=== PATIENT | male | born 1945 | race Caucasian/White ===

== ENCOUNTER 2019-04-09 12:27 | Outpatient (CLI) | payer MEDICARE, BC, SELFPAY ==
--- NOTE | 2019-04-09 12:42 | ECHO_ITS ---
Patient Info Name: Tom David Age: 73 years : 1945 Gender: Male Ht: 71 in Wt: 220 lbs BSA: 2.26 m2 HR: 74 bpm BP: 162 / 84 mmHg Technical Quality: Good Exam Date: 04/09/2019 12:48 PM Exam Location: [facility] Patient Status: Outpatient Admit Date: 04/09/2019 Staff Ordering Physician: Marco Antonio Persaud MD Automatic Steel Tie Adjuster: Rashmi Chris RDCS Attending Provider: Marco Antonio Persaud MD Referring Physician: Hung MORGAN; Exam Type: CA echo doppler color flow Study Info Indications I35.8 - Other nonrheumatic aortic valve disorders Complete two-dimensional, color flow and Doppler transthoracic echocardiogram is performed. Summary 1. Left ventricular chamber dimension is normal. 2. Left ventricular systolic function is normal, estimated at 60-65%. 3. There is mildly increased left ventricular wall thickness. 4. The left ventricular diastolic function is grade II diastolic dysfunction. 5. E/e' 10 is mildly elevated. 6. Left atrial chamber dimension is moderately enlarged. 7. There is severe aortic valve sclerosis. 8. There is moderate to severe aortic valve stenosis with a peak velocity of 349 cm/s, mean gradient of 19 mmHg, and aortic valve area of 1.1 cm2. 9. No pulmonary hypertension, estimated pulmonary arterial systolic pressure is 37 mmHg. 10. Small atheroma in anterior and posterior aortic root. Left Ventricle E/e' 10 is mildly elevated. Left ventricular chamber dimension is normal. Left ventricular systolic function is normal, estimated at 60-65%. There is mildly increased left ventricular wall thickness. The left ventricular diastolic function is grade II diastolic dysfunction. Right Ventricle Right ventricular chamber dimension is normal. Right ventricular systolic function is normal. Left Atria Left atrial chamber dimension is moderately enlarged. Right Atria Right atrial chamber dimension is normal. Aortic Valve The aortic valve is trileaflet. There is severe aortic valve sclerosis. There is moderate to severe aortic valve stenosis with a peak velocity of 349 cm/s, mean gradient of 19 mmHg, and aortic valve area of 1.1 cm2. There is no aortic valve regurgitation. Pulmonic Valve There is no pulmonic regurgitation. Mitral Valve There is no mitral valve stenosis. There is no mitral valve regurgitation. Tricuspid Valve There is no tricuspid valve regurgitation. No pulmonary hypertension, estimated pulmonary arterial systolic pressure is 37 mmHg. Pericardium/Pleural There is no pericardial effusion. Inferior Vena Cava Normal inferior vena cava with >50% collapse upon inspiration consistent with normal right atrial pressure, 5 mmHg. Aorta Small atheroma in anterior and posterior aortic root. The aortic root size at the sinus of Valsalva is normal. Left Ventricular Outflow Tract Name Value Normal LVOT 2D LVOT Diameter 1.9 cm LVOT Doppler LVOT Peak Velocity 138 cm/s LVOT Peak Gradient 7 mmHg LVOT Mean Gradient 4 mmHg LVOT VTI 33 cm
== END 2019-04-09 12:28 | disposition home or self-care (01) ==
PROVIDERS: PCP Emergency Medicine; Visit Provider Emergency Medicine
DX: I35.0 Nonrheumatic aortic (valve) stenosis (principal); I35.1 Nonrheumatic aortic (valve) insufficiency
CPT/HCPCS: 93306

== ENCOUNTER → 2019-10-16 12:10 | Outpatient (CLI) | payer MEDICARE, BC, SELFPAY ==
--- NOTE | ~2019-10-16 | XR_ITS ---
EXAMINATION: XR knee LT min 4V DATE: 10/16/2019 13:05 INDICATION: Left knee pain. TECHNIQUE: 4 views of left knee were obtained. COMPARISON: Left knee radiographs 08/28/2015 FINDINGS: Bone alignment is normal. No fracture. There is moderate osteoarthritis of medial compartme nt and mild osteoarthritis of lateral and patellofemoral compartments. No knee joint effusion. There is anterior knee soft tissue swelling. IMPRESSION: 1. Stable moderate left knee osteoarthritis. Reviewed, dictated and finalized at location A.
--- NOTE | ~2019-10-16 | XR_ITS ---
EXAMINATION: XR knee RT min 4V DATE: 10/16/2019 13:05 INDICATION: Right knee pain. TECHNIQUE: 4 views of right knee were obtained. COMPARISON: Right knee radiographs 08/28/2015 FINDINGS: Bone alignment is normal. No fracture. There is moderate osteoarthritis of medial compartme nt and mild osteoarthritis of lateral and patellofemoral compartments. No knee joint effusion. IMPRESSION: 1. Stable moderate right knee osteoarthritis. Reviewed, dictated and finalized at location A.
== END ==
PROVIDERS: PCP Emergency Medicine; Visit Provider Nurse Practitioner Adult Health
DX: M17.0 Bilateral primary osteoarthritis of knee (principal)
CPT/HCPCS: 73564

== ENCOUNTER 2020-04-21 13:34 | Outpatient (CLI) | payer MEDICARE, BC, SELFPAY ==
--- NOTE | 2020-04-21 13:45 | ECHO_ITS ---
Patient Info Name: Tom David Age: 74 years : 1945 Gender: Male Ht: 71 in Wt: 212 lbs BSA: 2.22 m2 HR: 80 bpm BP: 163 / 83 mmHg Heart Rhythm: Sinus Rhythm Exam Date: 04/21/2020 1:53 PM Exam Location: [facility] Patient Status: Outpatient Admit Date: 04/21/2020 Staff Ordering Physician: Jesse Shah DO Fios Line Installer: Rubi Arriaza RDCS Attending Provider: Jesse Shah DO Referring Physician: Pablo LAWTON; Exam Type: CA echo doppler color flow Study Info Indications I35.0 - Nonrheumatic aortic (valve) stenosis Complete two-dimensional, color flow and Doppler transthoracic echocardiogram is performed. Summary 1. Complete two-dimensional, color flow and Doppler transthoracic echocardiogram is performed. 2. Left ventricular chamber dimension is normal. 3. There is mildly increased left ventricular wall thickness. 4. Left ventricular systolic function is normal, estimated at 65-70%. 5. The left ventricular diastolic function is grade II diastolic dysfunction. 6. E/e' 14 is mildly elevated. 7. Left atrial chamber dimension is mildly enlarged. 8. There is severe aortic valve sclerosis. 9. There is critical aortic valve stenosis with a peak velocity of 363 cm/s, mean gradient of 26 mmHg, and aortic valve area of 0.5 cm2. 10. No pulmonary hypertension, estimated pulmonary arterial systolic pressure is 25 mmHg. 11. Small atheroma in anterior and posterior aortic root. Left Ventricle E/e' 14 is mildly elevated. Left ventricular chamber dimension is normal. Left ventricular systolic function is normal, estimated at 65-70%. There is mildly increased left ventricular wall thickness. The left ventricular diastolic function is grade II diastolic dysfunction. Right Ventricle Right ventricular chamber dimension is normal. Right ventricular systolic function is normal. Left Atria Left atrial chamber dimension is mildly enlarged. Right Atria Right atrial chamber dimension is normal. Aortic Valve There is critical aortic valve stenosis with a peak velocity of 363 cm/s, mean gradient of 26 mmHg, and aortic valve area of 0.5 cm2. The aortic valve is not well visualized. There is severe aortic valve sclerosis. There is no aortic valve regurgitation. Pulmonic Valve There is no pulmonic regurgitation. Mitral Valve There is no mitral valve stenosis. There is no mitral valve regurgitation. Tricuspid Valve There is no tricuspid valve regurgitation. No pulmonary hypertension, estimated pulmonary arterial systolic pressure is 25 mmHg. Pericardium/Pleural There is no pericardial effusion. Inferior Vena Cava Normal inferior vena cava with >50% collapse upon inspiration consistent with normal right atrial pressure, 5 mmHg. Aorta Small atheroma in anterior and posterior aortic root. The aortic root size at the sinus of Valsalva is normal. Left Ventricular Outflow Tract Name Value Normal LVOT 2D LVOT Diameter 1.4 cm LVOT Doppler LVOT Peak Gradient 3 mmHg LVOT Mean Gradient 2 mmHg LVOT VTI 26 cm
== END 2020-04-21 13:35 | disposition home or self-care (01) ==
PROVIDERS: PCP Emergency Medicine; Visit Provider Internal Medicine Cardiovascular Disease
DX: I35.0 Nonrheumatic aortic (valve) stenosis (principal)
CPT/HCPCS: 93306

== ENCOUNTER → 2020-05-01 02:22 | Outpatient (CLI) | payer MEDICARE, BC, SELFPAY ==
[2020-05-01 19:27] LABS: SARS-CoV-2 RNA PCR Negative
== END ==
PROVIDERS: PCP Emergency Medicine; Visit Provider Internal Medicine Cardiovascular Disease
DX: Z01.812 Encounter for preprocedural laboratory examination (principal); Z20.822 Contact with and (suspected) exposure to COVID-19
CPT/HCPCS: C9803; U0003; U0005

== ENCOUNTER 2020-05-04 02:24 | Day surgery (SDC) | payer MEDICARE, BC, SELFPAY ==
[2020-05-01 12:21] VITALS: BMI 29.8
[2020-05-04] VITALS (12 sets, daily range): BP systolic 94–157; BP diastolic 51–79; PULSE 57–73; RESP 12–20; TEMP 36.3–36.6; O2SAT 96–99
--- NOTE | 2020-05-04 07:31 | ECHO_ITS ---
Patient Info Name: Tom David Age: 74 years : 1945 Gender: Male Ht: 71 in Wt: 213 lbs BSA: 2.22 m2 HR: 60 bpm Exam Date: 05/04/2020 8:00 AM Exam Location: [facility] Patient Status: Outpatient Admit Date: 05/04/2020 Staff Ordering Physician: Jesse Shah DO Birdcage Assembler: Rashmi Chris RDCS Attending Provider: Jesse Shah DO Referring Physician: Pablo LAWTON; Exam Type: CA echo transesophageal Study Info Indications I35.0 - Nonrheumatic aortic (valve) stenosis Complete two-dimensional, color flow and Doppler transesophageal study is performed. Procedure Details Risks/benefits/alternative treatment to LAURA discussed with patient and he is agreeable for procedure. Cetacaine spray to posterior oropharynx. Fentanyl 50 mcg and Versed 3 mg IV given for conscious sedation. 4 attempts made at passing LAURA probe however, there was resistance and probe withdrawn. No blood noted on probe tip. Vitals stable with HR 65 bpm and BP 140/75 mmHg. Will perform LAURA with anesthiology assistance. Summary 1. Left ventricular chamber dimension is normal. 2. Left ventricular systolic function is normal with an ejection fraction of 65-70%. 3. There is mildly increased left ventricular wall thickness. 4. The left ventricular diastolic function is indeterminate. 5. The aortic valve is trileaflet. There right and non-coronary cusps with very severely restricted opening.. 6. There is severe aortic valve sclerosis. By planimetry the measured aortic valve area is 0.9-1.1 cm2. 7. There is severe aortic valve stenosis. Left Ventricle Left ventricular systolic function is normal with an ejection fraction of 65-70%. Left ventricular chamber dimension is normal. There is mildly increased left ventricular wall thickness. The left ventricular diastolic function is indeterminate. Right Ventricle Right ventricular chamber dimension is normal. Right ventricular systolic function is normal. Left Atria Left atrial chamber dimension is normal. Right Atria Right atrial chamber dimension is normal. Atrial Septum Intact interatrial septum visualized by agitated saline imaging. Atrial Appendage There is no thrombus visualized in the left atrial appendage. Aortic Valve The aortic valve is trileaflet. There right and non-coronary cusps with very severely restricted opening.. There is severe aortic valve sclerosis. By planimetry the measured aortic valve area is 0.9-1.1 cm2. There is severe aortic valve stenosis. There is no aortic valve regurgitation. Pulmonic Valve There is no pulmonic regurgitation. Mitral Valve There is no mitral valve stenosis. There is no mitral valve regurgitation. Tricuspid Valve There is no tricuspid valve regurgitation. Pericardium/Pleural There is no pericardial effusion. Inferior Vena Cava Inferior vena cava is not well visualized. Aorta The aortic root size at the sinus of Valsalva is normal. Aortic Valve Name Value Normal AV 2D/MM AV Area (Planimetry) 1.1 cm2 Report Signatures
--- NOTE | 2020-05-04 09:17 | WPDANESEPPF ---
Anes - Initial Pre Proc Eval Procedure: Operation Date: 05/04/20 08:30 Proposed Procedures p Trans Esophageal Echo - Jesse Shah DO Date/Time: 05/04/20 09:17 Surgeon: Jesse Shah DO Pre Op Diagnosis: Aortic Valve Stenosis Patient Data Age: 74 Gender: M Height: 5 ft 11 in Weight: 97 kg Last Vital Signs Temp 97.4 F L 05/04/20 07:33 Pulse 63 05/04/20 08:30 Resp 12 05/04/20 08:30 BP 126/71 05/04/20 08:30 Pulse Ox 98 05/04/20 08:30 Allergies Allergy/AdvReac Type Severity Reaction Status Date / Time No Known Allergies Allergy Verified 04/23/20 09:48 Home Medications Medication Instructions Recorded Confirmed Type acetaminophen 500 mg tablet 500 mg PO Q4H PRN 01/18/19 05/04/20 History cholecalciferol (vitamin D3) 25 1,000 unit PO DAILY 01/18/19 05/04/20 History mcg (1,000 unit) capsule [id number] C-Mn 500 See Rx Instructions .ROUTE .COMPLEX 01/18/19 05/01/20 History mg-400 mg capsule multivitamin 1 tablet PO DAILY 01/18/19 05/04/20 History aspirin [Aspir-81] 81 mg PO DAILY 01/23/19 05/04/20 History lancets See Rx Instructions .ROUTE 07/31/19 04/23/20 Rx .COMPLEX #306 each metoprolol succinate 100 mg See Rx Instructions .ROUTE 08/20/19 05/04/20 Rx tablet,extended release 24 hr .COMPLEX #90 tablet glipizide 5 mg tablet 5 mg PO BID #180 tablet 09/23/19 05/01/20 Rx metformin 1,000 mg tablet See Rx Instructions .ROUTE 09/23/19 05/01/20 Rx .COMPLEX #180 tablet omeprazole 20 mg capsule,delayed See Rx Instructions .ROUTE 09/23/19 05/04/20 Rx release .COMPLEX #90 cap amlodipine 10 mg tablet 10 mg PO DAILY #90 tablet 12/18/19 05/04/20 Rx hydralazine 50 mg tablet See Rx Instructions .ROUTE 12/18/19 05/04/20 Rx .COMPLEX #270 tablet blood sugar diagnostic See Rx Instructions .ROUTE 12/31/19 04/23/20 Rx .COMPLEX #200 strip atorvastatin 20 mg tablet See Rx Instructions .ROUTE 01/01/20 05/04/20 Rx .COMPLEX #39 tablet clonidine HCl 0.1 mg tablet See Rx Instructions .ROUTE 01/07/20 05/04/20 Rx .COMPLEX #180 tablet metoprolol succinate 50 mg See Rx Instructions .ROUTE 01/29/20 05/04/20 Rx tablet,extended release 24 hr .COMPLEX #90 tablet tamsulosin 0.4 mg capsule 0.4 mg PO DAILY #90 cap 02/19/20 05/04/20 Rx losartan 100 mg tablet 100 mg PO DAILY #90 tablet 02/25/20 05/04/20 Rx fenofibrate nanocrystallized 48 mg 48 mg PO DAILY #90 tablet 03/17/20 05/04/20 Rx tablet ascorbate calcium (vitamin C) 1,000 mg PO DAILY 05/01/20 05/04/20 History calcium and magnesium carbonat tablet PO 05/01/20 History tramadol 50 mg PO BID PRN 05/01/20 05/01/20 History Patient hx anesthesia problems: none Family hx anesthesia problems: none [facility] Past Medical History Medical History Congestive heart failure (CHF) EF 60-65 per cent Hypertension Family History Family History Grandparent Family history of heart disease in male family member before age 55 Mother Family history of heart disease in male family member before age 55 Diabetes mellitus, Onset Age: 81 Hypertension, Onset Age: 81 Family history of cardiovascular disease, Onset Age: 81 Father Family history of cardiovascular disease, Onset Age: 71 Social History Social History Smoking status: Never smoker Alcohol intake: current Drinks per week: 1 Alcohol use details: 1 shot of whiskey per day Substance use: never Substance use type: does not use Living arrangements: with family [place] - Teresa Final PreProcedure Day of Procedure 05/04/20 09:17 Patient weight: overweight Heart: regular rate and rhythm and murmur Lungs: clear to auscultation Airway: Mallampati scale class III Neurological: alert and oriented Last oral intake: >/= 8 hours ASA classification: IV Emergent: no Anesthetic plan:
== END 2020-05-04 11:00 | disposition home or self-care (01) ==
PROVIDERS: PCP Emergency Medicine; Visit Provider Internal Medicine Cardiovascular Disease
PROC: (CPT 93312; principal; 2020-05-04 08:30)
DX: I35.0 Nonrheumatic aortic (valve) stenosis (principal); I35.8 Other nonrheumatic aortic valve disorders; I11.0 Hypertensive heart disease with heart failure; I50.9 Heart failure, unspecified; Z79.82 Long term (current) use of aspirin; Z79.84 Long term (current) use of oral hypoglycemic drugs
CPT/HCPCS: 93312; 93320; 93325; J2250; J3010; J7040

== ENCOUNTER 2020-10-27 10:09 | Outpatient (CLI) | payer MEDICARE, BC, SELFPAY ==
--- NOTE | 2020-10-27 10:16 | ECHO_ITS ---
Patient Info Name: Tom David Age: 75 years : 1945 Gender: Male Ht: 71 in Wt: 220 lbs BSA: 2.26 m2 HR: 92 bpm BP: 176 / 91 mmHg Exam Date: 10/27/2020 10:31 AM Exam Location: [facility] Patient Status: Outpatient Admit Date: 10/27/2020 Staff Ordering Physician: Jesse Shah DO Dog Handler Or Trainer: Marlo Naylor, PIETRO, RT Attending Provider: Jesse Shah DO Referring Physician: Pablo LAWTON; Exam Type: CA echo doppler color flow Study Info Indications I35.0 - Nonrheumatic aortic (valve) stenosis Complete two-dimensional, color flow and Doppler transthoracic echocardiogram is performed. Strain analysis performed. Summary 1. Complete two-dimensional, color flow and Doppler transthoracic echocardiogram is performed. 2. Left ventricular chamber dimension is normal. 3. Left ventricular systolic function is normal, estimated at 60-65%. 4. There is mildly increased left ventricular wall thickness. 5. The left ventricular diastolic function is grade I diastolic dysfunction. 6. E/e' 7 is not elevated. 7. Global longitudinal strain is abnormal at -15.8%. 8. The aortic valve is not well visualized. Cannot determine number of aortic valve leaflets. 9. There is severe aortic valve stenosis based on a peak velocity of 428 cm/s, mean gradient of 39 mmHg, and aortic valve area of 0.9 cm2. 10. There is severe aortic valve sclerosis. 11. The mitral valve has mildly calcified annulus. Left Ventricle E/e' 7 is not elevated. Global longitudinal strain is abnormal at -15.8%. Left ventricular chamber dimension is normal. Left ventricular systolic function is normal, estimated at 60-65%. There is mildly increased left ventricular wall thickness. The left ventricular diastolic function is grade I diastolic dysfunction. Right Ventricle Right ventricular systolic function is normal and with normal TAPSE 3.3 cm. Right ventricular chamber dimension is normal. Left Atria Left atrial chamber dimension is normal. Right Atria Right atrial chamber dimension is normal. Aortic Valve The aortic valve is not well visualized. Cannot determine number of aortic valve leaflets. There is severe aortic valve stenosis based on a peak velocity of 428 cm/s, mean gradient of 39 mmHg, and aortic valve area of 0.9 cm2. There is severe aortic valve sclerosis. There is no aortic valve regurgitation. Pulmonic Valve There is no pulmonic regurgitation. Mitral Valve The mitral valve has mildly calcified annulus. There is no mitral valve stenosis. There is no mitral valve regurgitation. Tricuspid Valve There is no tricuspid valve regurgitation. Pericardium/Pleural There is no pericardial effusion. Inferior Vena Cava Normal inferior vena cava with >50% collapse upon inspiration consistent with normal right atrial pressure, 5 mmHg. Aorta The aortic root size at the sinus of Valsalva is normal. Left Ventricular Outflow Tract Name Value Normal LVOT 2D LVOT Diameter 2.0 cm LVOT Doppler LVOT Peak Gradient 8 mmHg LVOT Mean Gradient 4 mmHg LVOT VTI
== END 2020-10-27 10:10 | disposition home or self-care (01) ==
LOC: ANHCARD 10:11
PROVIDERS: PCP Emergency Medicine; Visit Provider Internal Medicine Cardiovascular Disease
DX: I35.0 Nonrheumatic aortic (valve) stenosis (principal)
CPT/HCPCS: 93306

== ENCOUNTER 2021-10-14 09:40 | Outpatient (CLI) | payer MEDICARE, BC, SELFPAY ==
--- NOTE | 2021-10-14 10:11 | ECHO_ITS ---
Patient Info Name: Tom David Age: 76 years : 1945 Gender: Male Ht: 71 in Wt: 215 lbs BSA: 2.23 m2 HR: 79 bpm BP: 165 / 88 mmHg Technical Quality: Good Exam Date: 10/14/2021 10:32 AM Exam Location: [facility] Patient Status: Outpatient Admit Date: 10/14/2021 Staff Ordering Physician: Jesse Shah DO Certified Athletic Trainer: Marlo Naylor RDCS, RT Attending Provider: Jesse Shah DO Referring Physician: Pablo LAWTON; Exam Type: CA echo dop color flow w con Study Info Indications I35.0 - Nonrheumatic aortic (valve) stenosis Complete two-dimensional, color flow and Doppler transthoracic echocardiogram is performed. Strain analysis performed. Summary 1. Complete two-dimensional, color flow and Doppler transthoracic echocardiogram is performed. 2. Left ventricular chamber dimension is normal. 3. Left ventricular systolic function is normal, estimated at 65-70%. 4. There is mildly increased left ventricular wall thickness. 5. The left ventricular diastolic function is grade I diastolic dysfunction. 6. E/e' 8 is minimally elevated. 7. Global longitudinal strain is mildly abnormal at -16.4%. 8. Left atrial chamber dimension is mildly enlarged. 9. Right atrial chamber dimension is mildly enlarged. 10. There is severe aortic valve sclerosis. 11. There is severe aortic valve stenosis with a peak velocity of 430.13 cm/s, mean gradient of 37 mmHg, and aortic valve area of 0.85 cm2. 12. The mitral valve has mildly calcified annulus. 13. There is trace mitral valve regurgitation. Left Ventricle E/e' 8 is minimally elevated. Global longitudinal strain is mildly abnormal at -16.4%. Left ventricular chamber dimension is normal. Left ventricular systolic function is normal, estimated at 65-70%. There is mildly increased left ventricular wall thickness. The left ventricular diastolic function is grade I diastolic dysfunction. Right Ventricle Right ventricular systolic function is normal and with normal TAPSE 2.7 cm. Right ventricular chamber dimension is normal. Left Atria Left atrial chamber dimension is mildly enlarged. Right Atria Right atrial chamber dimension is mildly enlarged. Aortic Valve The aortic valve is trileaflet. There is severe aortic valve sclerosis. There is severe aortic valve stenosis with a peak velocity of 430.13 cm/s, mean gradient of 37 mmHg, and aortic valve area of 0.85 cm2. There is no aortic valve regurgitation. Pulmonic Valve There is no pulmonic regurgitation. Mitral Valve The mitral valve has mildly calcified annulus. There is no mitral valve stenosis. There is trace mitral valve regurgitation. Tricuspid Valve There is no tricuspid valve regurgitation. Pericardium/Pleural There is no pericardial effusion. Inferior Vena Cava Normal inferior vena cava with >50% collapse upon inspiration consistent with normal right atrial pressure, 5 mmHg. Aorta The aortic root size at the sinus of Valsalva is normal. Left Ventricular Outflow Tract Name Value Normal LVOT 2D LVOT Diameter 2.04 cm LVOT Doppler LVOT Peak Gradient 5 mmHg LVOT Me
== END 2021-10-14 09:41 | disposition home or self-care (01) ==
LOC: ANHCARD 09:40
PROVIDERS: PCP Emergency Medicine; Visit Provider Internal Medicine Cardiovascular Disease
DX: I35.0 Nonrheumatic aortic (valve) stenosis (principal)
CPT/HCPCS: 93306

== ENCOUNTER → 2022-02-23 10:35 | Outpatient (CLI) | payer MEDICARE, BC, SELFPAY ==
--- NOTE | ~2022-02-23 | US_ITS ---
EXAMINATION: US scrotum doppler DATE: 02/23/2022 11:22 INDICATION: Right testicular swelling TECHNIQUE: Testicular sonogram utilizing grayscale and Doppler COMPARISON: None. FINDINGS: The right testis measures 3.3 x 1.7 x 2.9 cm. The left testis measures 2.2 x 1.9 x 2.0 cm. There is normal vascular flow to both testes. The right epididymis is normal with normal vascular guy w. The left epididymis is not visualized. Fluid in peristalsing bowel are noted in the right scrotum. IMPRESSION: 1. Large right inguinal hernia with bowel and fluid in the scrotum. Reviewed, dictated and finalized at location B. CTOR OF PHOTOGRAPHY
== END ==
PROVIDERS: PCP Emergency Medicine; Visit Provider Emergency Medicine
DX: N50.89 Other specified disorders of the male genital organs (principal); K40.90 Unilateral inguinal hernia, without obstruction or gangrene, not specified as recurrent
CPT/HCPCS: 76870; 93976

== ENCOUNTER 2022-04-15 08:02 | Outpatient (CLI) | payer MEDICARE, BC, SELFPAY ==
--- NOTE | ~2022-04-15 | NM_ITS ---
EXAMINATION: NM genesis stress w perfusion DATE: 04/15/2022 10:00 HORIZONTAL BORING MILL SET UP OPERATOR INDICATION: Dyspnea TECHNIQUE: Rest images were obtained following intravenous administration of 10.8 mCi Tc99m tetrofosm in (Myoview). The patient was infused intravenously with Lexiscan (regadenoson). Then, 34.9 mCi Tc99m tetrofosmin (Myoview) was administered intravenously, and stress images were obtained. Data was quinton nstructed into short axis and horizontal and vertical long axis SPECT images. Gated SPECT images were also obtained. COMPARISON: None. FINDINGS: There is no definite reversible or fixed perfusion abnormality to suggest ischemia or infar ction. There is no segmental wall motion abnormality. Left ventricular ejection fraction measures 7 2%. IMPRESSION: 1. No definite ischemia or infarct. 2. Normal left ventricular ejection fraction measuring 72%. Reviewed, dictated and finalized at location B. ZONTAL BORING MILL SET UP OPERATOR
--- NOTE | 2022-04-15 08:15 | EST_ITS ---
Patient Info Name: Tom David Age: 76 years : 1945 Gender: Male Ht: 71 in Wt: 224 lbs BSA: 2.28 m2 HR: 72 bpm BP: 135 / 64 mmHg Heart Rhythm: Sinus Rhythm Exam Date: 04/15/2022 8:58 AM Exam Location: [facility] Patient Status: Outpatient Admit Date: 04/15/2022 Staff Ordering Physician: Jesse Shah DO Attending Provider: Jesse Shah DO Exercise Technologist: Ellen Tomlinson CT Exercise Physician: Jesse Shah DO Exam Type: CA stress genesis w NM Study Info Indications Z01.810 - Encounter for preprocedural cardiovascular examination R06.09 - Other forms of dyspnea A regadenoson stress test was performed. Summary 1. 1. Negative lexiscan stress test for ischemic ST changes by ECG criteria. 2. 2. Stable hemodynamics throughout the test. 3. 3. Nuclear scan to follow and will be reported separately. Please correlate with it. 4. 4. Patient informed of the above results. Protocol: Lexiscan Stress ECG Details Stage: REST Duration (min): 1 min : 0 sec HR (bpm): 72 SBP (mmHg): 135 DBP (mmHg): 64 Stage: REST Duration (min): 6 min : 58 sec HR (bpm): 76 SBP (mmHg): 135 DBP (mmHg): 64 Stage: STAGE 1 Duration (min): 1 min : 0 sec HR (bpm): 85 SBP (mmHg): 132 DBP (mmHg): 62 Stage: RECOVERY Duration (min): 1 min : 0 sec HR (bpm): 87 SBP (mmHg): 132 DBP (mmHg): 62 Stage: RECOVERY Duration (min): 2 min : 0 sec HR (bpm): 83 SBP (mmHg): 132 DBP (mmHg): 62 Stage: RECOVERY Duration (min): 3 min : 0 sec HR (bpm): 78 SBP (mmHg): 116 DBP (mmHg): 61 Stage: RECOVERY Duration (min): 4 min : 0 sec HR (bpm): 81 SBP (mmHg): 116 DBP (mmHg): 61 Stage: RECOVERY Duration (min): 4 min : 38 sec HR (bpm): 78 SBP (mmHg): 119 DBP (mmHg): 60 Rest HR: 76 bpm Peak HR: 88 bpm Rest Sys BP: 135 mmHg Peak Sys BP: 132 mmHg Max Pred HR: 142 bpm % Max Pred HR: 62 % Target HR: 121 bpm Max RPP: 11,616 bpm*mmHg Termination Reason: Completed protocol Cardiac Symptoms: Shortness of breath Total Time: 1 min : 0 sec Rest Salgado BP: 64 mmHg Peak Salgado BP: 62 mmHg Total Dose: 0.4 mg Resting ECG Sinus rhythm. Stress ECG No ST changes. Arrhythmias None. Report Signatures
== END 2022-04-15 08:03 | disposition home or self-care (01) ==
PROVIDERS: PCP Emergency Medicine; Visit Provider Internal Medicine Cardiovascular Disease
DX: R06.09 Other forms of dyspnea (principal)
CPT/HCPCS: 78452; 93017; A9502; J2785

== ENCOUNTER 2022-05-02 11:19 | Outpatient (CLI) | payer MEDICARE, BC, SELFPAY ==
[2022-05-02 12:20] LABS: Anion Gap 5 mmol/L (8-16); Blood Urea Nitrogen 13 mg/dL (9-20); Calcium 8.9 mg/dL (8.4-10.2); Carbon Dioxide 29 mmol/L (22-30); Chloride 102 mmol/L (98-107); Estimated Glomerular Filt Rate > 60; Glucose 234 mg/dL (65-110); Potassium 4.2 mmol/L (3.4-5.0); Sodium 136 mmol/L (137-145)
== END 2022-05-02 11:20 | disposition home or self-care (01) ==
LOC: ANHSURGERY 11:24
PROVIDERS: Anesthesiology; PCP Emergency Medicine; Visit Provider Surgery
DX: E11.9 Type 2 diabetes mellitus without complications (principal); Z01.818 Encounter for other preprocedural examination
CPT/HCPCS: 36415; 80048

== ENCOUNTER 2022-05-05 00:21 | Day surgery (SDC) | payer MEDICARE, BC, SELFPAY ==
[2022-04-29 10:37] VITALS: BMI 32.5
--- NOTE | 2022-04-29 10:58 | PC.NURSE ---
Report to the Outpatient Waiting Room, entrance under the green pavilion located off [facility], at time _10:00AM on date ___05/05/22____. Planned Procedure Time: __12:00PM . Time changes happen often and if your time is changed the preop area will call you the afternoon before. - You and your visitor will be asked to self-screen and do not enter if you have any COVID symptoms. - Only one visitor is requested with a max of two and NO children visitors are allowed at this time. - The patient visitor may be requested to leave or wait in car when not with patient due to distancing restrictions. - A mask is optional within the hospital at this time. Patients may have clear liquids (water, carbonated beverages, clear teas, apple juice) until 3 hours prior to surgery with a maximum of 20 ounces. - No food from midnight until time of surgery Take the following medications with a SIP of water the morning of surgery: __AMLODIPINE, CLONIDINE, HYDRALAZINE, METOPROLOL, TRAMADOL_ DO NOT STOP ANY OF YOUR OTHER PRESCRIPTION MEDICATIONS PRIOR TO SURGERY ?EXCEPT THE FOLLOWING Medications to discontinue per physician __HOLD ALL VITAMINS/SUPPLEMENTS 3 DAYS PRE-OP Date to take last dose__05/01/22 Please no make-up, nail spanish, hairspray, perfume, deodorant, or body powder the day of surgery. No jewelry (including any body piercings) or valuables the day of surgery, leave them at home. Please take a shower or bath the night before, or the morning of, surgery with an antibacterial soap. Wear comfortable, loose fitting clothing. Children are encouraged to wear pajamas. - Jewelry must be removed prior to entering the operating room. Rings and piercings that are not removed may be cut off. - The hospital will not accept responsibility for valuables. - Please leave all valuables, including medications, at home the day of surgery. If you are going home after surgery, a licensed pile driver operator helper must drive you home. - NO public transportation without another adult if you receive anesthesia. - We recommend that an adult stay with you for 24 hours following discharge. - We also recommend that you do not drive, make important decision, drink alcoholic beverages, or take any drugs that were not prescribed by your health care provider for at least 24 hours after your discharge time. Follow any additional instructions given to you from your surgeon. HIBICLENS SHOWER MORNING OF SURGERY If you or anyone in your household have experienced Covid symptoms in the past week, please notify your surgeon or the nurse liaison at the phone number below for possible testing. Telephone instructions given to __PATIENT & WIFE___and asked if any additional questions and then verbalized understanding. Patient advised to call surgeon office or pre surgery nurse liaison [phone] if any additional questions.
[2022-05-05] MEDS: ACETAMINOPHEN 500 MG TABLET 1000 MG PO (10:44)
[2022-05-05] MEDS: KETOROLAC 15 MG/ML VIAL (*BKC) IV PUSH (10:59)
[2022-05-05 11:00] VITALS: BP 135/56; PULSE 73; RESP 16; TEMP 37.1; O2SAT 96
--- NOTE | 2022-05-05 12:04 | WPDANESEPPF ---
Anes - Initial Pre Proc Eval Procedure: Operation Date: 05/05/22 12:00 Proposed Procedures p Right Inguinal Hernia Repair - Eros Hilton MD Date/Time: 05/05/22 12:04 Surgeon: Eros Hilton MD Pre Op Diagnosis: Right Ing Hernia Patient Data Age: 76 Gender: M Height: 1.78 m Weight: 103 kg Last Vital Signs Temp 37.1 C 05/05/22 11:00 Pulse 73 05/05/22 11:00 Resp 16 05/05/22 11:00 BP 135/56 L 05/05/22 11:00 Pulse Ox 96 05/05/22 11:00 O2 Del Method Room Air 05/05/22 11:00 Allergies Allergy/AdvReac Type Severity Reaction Status Date / Time No Known Allergies Allergy Verified 05/05/22 10:14 Home Medications Medication Instructions Recorded Confirmed Type acetaminophen 500 mg tablet 1,000 mg PO Q4H PRN Pain 01/18/19 04/29/22 History (Tylenol Extra Strength) cholecalciferol (vitamin D3) 25 1,000 unit PO DAILY 01/18/19 04/29/22 History mcg (1,000 unit) capsule fvafvvutspi-ghsirqzdk-kyf C-Mn 500 1 cap PO BID 01/18/19 04/29/22 History mg-400 mg capsule (Glucosamine Chondroitin Maximum Strength) multivitamin (Daily Multi-Vitamin 1 tablet PO DAILY 01/18/19 04/29/22 History tablet) aspirin 81 mg tablet,delayed 81 mg PO DAILY 01/23/19 04/29/22 History release (Aspir-) calcium and magnesium carbonates 1 tablet PO TID 05/01/20 04/29/22 History 520 mg-400 mg tablet tramadol 50 mg tablet 50 mg PO TID 05/01/20 04/29/22 History mecobalamin-levomefolate 1 tablet PO BID 04/21/21 04/29/22 History calcium-pyridoxal phos 3 mg-35 mg-2 mg tablet fenofibrate nanocrystallized 48 mg 48 mg PO DAILY #90 tabs 09/22/21 04/29/22 Rx tablet clonidine HCl 0.1 mg tablet 0.1 mg PO TID 10/27/21 04/29/22 History amlodipine 10 mg tablet (Norvasc) 10 mg PO QAM 04/29/22 04/29/22 History glipizide 5 mg tablet 5 mg PO BID 04/29/22 04/29/22 History hydralazine 50 mg tablet 50 mg PO TID 04/29/22 04/29/22 History ibuprofen 200 mg capsule 400 mg PO Q6H PRN Pain 04/29/22 04/29/22 History losartan 100 mg tablet 100 mg PO QAM 04/29/22 04/29/22 History metformin 1,000 mg tablet 1,000 mg PO BID 04/29/22 04/29/22 History metoprolol succinate 50 mg 50 mg PO QAM 04/29/22 04/29/22 History tablet,extended release 24 hr (Toprol XL) omeprazole 20 mg capsule,delayed 20 mg PO DAILY 04/29/22 04/29/22 History release sitagliptin phosphate 25 mg tablet 25 mg PO QAM 04/29/22 04/29/22 History (Januvia) tamsulosin 0.4 mg capsule 0.4 mg PO HS 04/29/22 04/29/22 History atorvastatin 20 mg tablet 20 mg PO 3XW #39 tabs 05/02/22 Rx metoprolol succinate 100 mg See Rx Instructions .Route 05/03/22 Rx tablet,extended release 24 hr .COMPLEX #90 tabs Patient hx anesthesia problems: none Family hx anesthesia problems: none Results Review: All pre-operative results and documents have been reviewed as part of the pre-operative evaluation. [facility] Past Medical History Medical History Congestive heart failure (CHF) EF 60-65 per cent Hypertension Surgical History Surgical History H/O hand surgery Family History Family History Grandparent Family history of heart disease in male family member before age 55 Mother Family history of heart disease in male family member before age 55 Diabetes mellitus, Onset Age: 81 Hypertension, Onset Age: 81 Family history of cardiovascular disease, Onset Age: 81 Father Family history of cardiovascular disease, Onset Age: 71 Social History Social History Smoking status: Never smoker Second hand tobacco smoke exposure: No Alcohol intake: current Drinks per week: 1 Alcohol use details: 1 shot of whiskey per day Substance use: never Substance use type: does not use Living arrangements: wi
[2022-05-05] MEDS: ceFAZolin 2 GM/D5W 50 ML 2 GM/50 ML BAG IVPB (12:41)
[2022-05-05 13:01] LABS: Glucose Point of Care 176 mg/dl (65-105)
[2022-05-05] MEDS: LIDO 1%/EPINEPHRINE 1:100,000 50 ML VIAL INFILTRATE (13:09)
--- NOTE | 2022-05-05 14:25 | W.PM.PROC2 ---
Procedure Note - Detailed Date of Procedure 05/05/22 Pre-op Diagnosis Right Ing Hernia Post-op Diagnosis Other (Sliding right inguinal hernia) Procedure Performed Repair sliding right inguinal hernia with extra-large PerFix Light plug and patch Surgeon Eros Hilton MD Manager [address] [id number] Anesthesia General (G IV S), Local (0.5% Marcaine with epinephrine) and Other (Xaracoll) Indications Patient has aortic stenosis since of a fairly severe nature. He has a large right inguinal scrotal hernia. It is symptomatic and he is taken to surgery now for repair. Findings This was a sliding hernia with omentum making up the lateral wall of the hernia sac. It was quite large extending well into the scrotum and with a lot of chronically eviscerated omentum and small intestine. Description of Procedure The patient was taken to surgery and anesthesia was introduced. The genitalia and right groin areas were prepped and draped. The proposed incision was marked in the right inguinal region. Local was infiltrated in the area and in the subcutaneous. Incision was made and dissection was carried down through the subcutaneous and through Nicho's fascia. Once Nicho's fascia was divided we then encountered the very large chronically incarcerated inguinal hernia. We followed this laterally and then exposed the external oblique aponeurosis just lateral to the very dilated external ring. I exposed the aponeurosis laterally and then infiltrated deep to the aponeurosis with additional local anesthetic. The aponeurosis was opened laterally extended medially through the external ring. I then dissected aponeurosis as well as subcutaneous from the hernia. I freed the leaves of the aponeurosis from the inguinal canal contents as well. I then dissected down to the hernia sac and opened it in the anteromedial aspect. Most of the chronically this rated contents were mobile although laterally the omentum was actually the hernia sac constituting a sliding hernia. I was eventually able to reduce the contents of the hernia sac except for the sliding portion. I then placed a couple of fingers in the hernia sac in gently dissected it up and out of the scrotum and freed it from the spermatic cord and any additional tissues. Once the hernia sac was completely freed at its end, I closed the opening in the hernia sac with running 3-0 Vicryl suture. I then twisted the hernia sac and continued the dissection to the internal ring. I freed the spermatic cord vessels and excised any residual cremasteric fibers so that the internal ring could be seen easily. I then reduced the hernia into the retroperitoneum. An extra-large PerFix plug was placed in the defect. I sutured the edges of the plug to the transversalis fascia with interrupted 3-0 Vicryl suture. I further closed the defect with interrupted 3-0 Vicryl suture including some of the edges of the plug. The cord appeared to be in good condition and was not at all strangulated by the closure. I then cut a patch to the appropriate size and placed it over the inguinal canal floor. The lateral leaves were passed beyond the cord. I sutured some of the patch to the transversalis fascia to keep it in place. The 1st piece of Xaracoll was then placed over the patch. I should point out that the ileoinguinal nerve was very attenuated as it came through the external ring and was simply divided. I never could find the more distal aspects of the ileoinguinal nerve. After the Xaracoll was placed, I closed the external oblique with interrupted 3-0 Vicryl suture reconstituting the external ring. The 2nd pieces Xaracoll was then placed over the external oblique aponeurosis. Nicho's fascia was closed with interrupted 3-0 Vicryl suture. The last pieces Xaracoll was placed in the subcutaneous. Subcuticular 4-0 Vicryl interrupted skin sutures were placed followed by a running 4-0 Monocryl skin suture. The wound was dressed with Exofin surgical
[2022-05-05 14:32] VITALS: BP 111/59; PULSE 78; RESP 12; O2SAT 94
[2022-05-05] MEDS: LACTATED RINGERS 1,000 ML 30 ML IV CONT ×2 (14:32→14:33)
[2022-05-05 15:00] VITALS: BP 129/62; PULSE 81; O2SAT 91
[2022-05-05 15:30] VITALS: BP 134/66; PULSE 88
[2022-05-05 16:00] VITALS: BP 145/74; PULSE 95
== END 2022-05-05 16:18 | disposition home or self-care (01) ==
PROVIDERS: PCP Emergency Medicine; Visit Provider Surgery
PROC: (CPT 49525; principal; 2022-05-05 12:00)
DX: K40.90 Unilateral inguinal hernia, without obstruction or gangrene, not specified as recurrent (principal); I11.0 Hypertensive heart disease with heart failure; I50.9 Heart failure, unspecified; Z79.84 Long term (current) use of oral hypoglycemic drugs; Z79.82 Long term (current) use of aspirin
CPT/HCPCS: 49525; 82948; A9270; C1781; J0690; J1100; J1170; J1885; J2370; J2405; J2704; J3010; J7120

== ENCOUNTER 2022-11-09 08:26 | Outpatient (CLI) | payer MEDICARE, BC, SELFPAY ==
--- NOTE | 2022-11-09 08:30 | ECHO_ITS ---
Patient Info Name: Tom David Age: 77 years : 1945 Gender: Male Ht: 71 in Wt: 222 lbs BSA: 2.27 m2 HR: 79 bpm BP: 151 / 78 mmHg Heart Rhythm: Sinus Rhythm Technical Quality: Fair Exam Date: 11/09/2022 9:15 AM Exam Location: [facility] Patient Status: Outpatient Admit Date: 11/09/2022 Staff Ordering Physician: Jesse Shah DO Infant Lead Teacher: Zahraa Fischer RDCS Attending Provider: Jesse Shah DO Referring Physician: Pablo LAWTON; Exam Type: CA echo doppler color flow Study Info Indications I35.0 - Nonrheumatic aortic (valve) stenosis Complete two-dimensional, color flow and Doppler transthoracic echocardiogram is performed. Summary 1. Complete two-dimensional, color flow and Doppler transthoracic echocardiogram is performed. 2. Left ventricular chamber dimension is normal. 3. Left ventricular systolic function is normal, estimated at 60-65%. 4. There is moderate concentric increased left ventricular wall thickness. 5. The left ventricular diastolic function is grade II diastolic dysfunction. 6. E/e' 13 is mildly elevated. 7. Left atrial chamber dimension is moderately enlarged. 8. There is severe aortic valve sclerosis. 9. There is critical aortic valve stenosis with a peak velocity of 507 cm/s, mean gradient of 67 mmHg, and aortic valve area of 0.6 cm2. 10. Mild pulmonary hypertension, estimated pulmonary arterial systolic pressure is 43 mmHg. 11. Dilated inferior vena cava with >50% collapse upon inspiration consistent with normal right atrial pressure, 10 mmHg. Left Ventricle E/e' 13 is mildly elevated. Left ventricular chamber dimension is normal. Left ventricular systolic function is normal, estimated at 60-65%. There is moderate concentric increased left ventricular wall thickness. The left ventricular diastolic function is grade II diastolic dysfunction. Right Ventricle Right ventricular systolic function is normal and with normal TAPSE 2.6 cm. Right ventricular chamber dimension is normal. Left Atria Left atrial chamber dimension is moderately enlarged. Right Atria Right atrial chamber dimension is normal. Aortic Valve The aortic valve is trileaflet. There is severe aortic valve sclerosis. There is critical aortic valve stenosis with a peak velocity of 507 cm/s, mean gradient of 67 mmHg, and aortic valve area of 0.6 cm2. There is no aortic valve regurgitation. Pulmonic Valve There is no pulmonic regurgitation. Mitral Valve There is no mitral valve stenosis. There is no mitral valve regurgitation. Tricuspid Valve There is no tricuspid valve regurgitation. Mild pulmonary hypertension, estimated pulmonary arterial systolic pressure is 43 mmHg. Pericardium/Pleural There is no pericardial effusion. Inferior Vena Cava Dilated inferior vena cava with >50% collapse upon inspiration consistent with normal right atrial pressure, 10 mmHg. Aorta The aortic root size at the sinus of Valsalva is normal. Left Ventricular Outflow Tract Name Value Normal LVOT 2D LVOT Diameter 2.0 cm LVOT Doppler LVOT Peak Gradient 6 mmHg LVOT Mean Gradient 3 mmHg LVOT VTI 28 cm LVOT V
== END 2022-11-09 08:27 | disposition home or self-care (01) ==
LOC: ANHCARD 08:27
PROVIDERS: PCP Emergency Medicine; Visit Provider Internal Medicine Cardiovascular Disease
DX: I35.0 Nonrheumatic aortic (valve) stenosis (principal); I27.20 Pulmonary hypertension, unspecified
CPT/HCPCS: 93306

== ENCOUNTER 2022-11-22 01:14 | Day surgery (SDC) | payer MEDICARE, BC, SELFPAY ==
--- NOTE | 2022-11-22 09:35 | WPDANESEPP ---
Anes - Eval Pre Procedure Procedure: Operation Date: 11/22/22 10:00 Proposed Procedures p Trans Esophageal Echo - Jesse Shah, Date/Time: 11/22/22 09:35 Surgeon: Pablo Preop Diagnosis: CHF/Aortic Stenosis Pre Op Diagnosis: AVS Patient Data Age: 77 Gender: M Height: Weight: Allergies Allergy/AdvReac Type Severity Reaction Status Date / Time No Known Allergies Allergy Verified 11/22/22 09:28 Home Medications Medication Instructions Recorded Confirmed Type acetaminophen 500 mg tablet 1,000 mg PO Q4H PRN Pain 01/18/19 11/22/22 History (Tylenol Extra Strength) cholecalciferol (vitamin D3) 25 1,000 unit PO DAILY 01/18/19 11/22/22 History mcg (1,000 unit) capsule [id number]-[id number]-wma C-Mn 500 1 cap PO BID 01/18/19 11/22/22 History mg-400 mg capsule (Glucosamine Chondroitin Maximum Strength) multivitamin (Daily Multi-Vitamin 1 tablet PO DAILY 01/18/19 11/22/22 History tablet) aspirin 81 mg tablet,delayed 81 mg PO DAILY 01/23/19 11/22/22 History release (Aspir-) calcium and magnesium carbonates 1 tablet PO TID 05/01/20 11/22/22 History 520 mg-400 mg tablet tramadol 50 mg tablet 50 mg PO TID 05/01/20 11/22/22 History mecobalamin-levomefolate 1 tablet PO BID 04/21/21 11/22/22 History calcium-pyridoxal phos 3 mg-35 mg-2 mg tablet ibuprofen 200 mg capsule 400 mg PO Q6H PRN Pain 04/29/22 11/22/22 History metoprolol succinate 100 mg See Rx Instructions .Route 05/03/22 11/22/22 Rx tablet,extended release 24 hr .COMPLEX #90 tabs blood sugar diagnostic (Accu-Chek See Rx Instructions .Route 06/22/22 11/22/22 Rx Ana Lilia Plus test strips) .COMPLEX #200 strips metformin 1,000 mg tablet See Rx Instructions .Route 06/22/22 11/22/22 Rx .COMPLEX #180 tabs fenofibrate nanocrystallized 48 mg See Rx Instructions .Route 06/28/22 11/22/22 Rx tablet .COMPLEX #90 tabs glipizide 5 mg tablet See Rx Instructions .Route 06/28/22 11/22/22 Rx .COMPLEX #180 tabs metoprolol succinate 50 mg See Rx Instructions .Route 08/09/22 11/22/22 Rx tablet,extended release 24 hr .COMPLEX #90 tabs losartan 100 mg tablet See Rx Instructions .Route 08/23/22 11/22/22 Rx .COMPLEX #90 tabs tamsulosin 0.4 mg capsule See Rx Instructions .Route 08/29/22 11/22/22 Rx .COMPLEX #90 caps clonidine HCl 0.1 mg tablet See Rx Instructions .Route 09/14/22 11/22/22 Rx .COMPLEX #270 tabs omeprazole 20 mg capsule,delayed See Rx Instructions .Route 09/14/22 11/22/22 Rx release .COMPLEX #90 caps sitagliptin phosphate 50 mg tablet 50 mg PO DAILY #90 tabs 10/05/22 11/22/22 Rx (Januvia) hydralazine 50 mg tablet 75 mg PO TID #135 tabs 10/12/22 11/22/22 Rx atorvastatin 20 mg tablet See Rx Instructions .Route 11/16/22 11/22/22 Rx .COMPLEX #39 tabs amlodipine 10 mg tablet 10 mg PO DAILY 11/22/22 11/22/22 History Other studies: echo 11/09/22-EF 60-65% Patient hx anesthesia problems: none Family hx anesthesia problems: none Results Review: All pre-operative results and documents have been reviewed as part of the pre-operative evaluation. [facility] Past Medical History Medical History Congestive heart failure (CHF) EF 60-65 per cent Hypertension Surgical History Surgical History H/O hand surgery H/O right inguinal hernia repair 05/04/22 Family History Family History Grandparent Family history of heart disease in male family member before age 55 Mother Family history of heart disease in male family member before age 55 Diabetes mellitus, Onset Age: 81 Hypertension, Onset Age: 81 Family history of cardiovascular disease, Onset Age: 81 Father Family history of cardiovascular disease, Onset Age: 71 Social History Social History Smoking stat
[2022-11-22 09:38] VITALS: BP 128/64; PULSE 82; RESP 18; TEMP 36.9; O2SAT 96; BMI 31.4
--- NOTE | 2022-11-22 09:47 | ECHO_ITS ---
Patient Info Name: Tom David Age: 77 years : 1945 Gender: Male HR: 77 bpm BP: 128 / 64 mmHg Heart Rhythm: Sinus Rhythm Technical Quality: Good Exam Date: 11/22/2022 10:28 AM Exam Location: [facility] Patient Status: Outpatient Admit Date: 11/22/2022 Staff Ordering Physician: Jesse Shah DO Accounts Payable Representative: Zahraa Fischer RDCS Attending Provider: Jesse Shah DO Referring Physician: Pablo LAWTON; Exam Type: CA echo transesophageal Study Info Indications I35.0 - Nonrheumatic aortic (valve) stenosis Complete two-dimensional, color flow and Doppler transesophageal study is performed. Procedure Details Risks/benefits/alternative to LAURA discuss with patient and he gave informed consent. Anesthesiology service provided sedation. Patient monitored electrocardiographically, vitals and pulse ox. He is in sinus rhythm at HR 70's on average, BP 120/70 mmHg, and pulse ox>95%. Cetacaine spray to posterior oropharynx x 2. LAURA probe advanced multiple times as there was resistance, then it did move smoothly into esophagus without incident. Multiple images obtained at various levels of esophagus. LAURA probe withdrawn and no blood noted on LAURA probe tip. Patient tolerated procedure well and no complications. Summary 1. Transesophageal echocardiogram. 2. Left ventricular chamber dimension is normal. 3. There is moderate concentric increased left ventricular wall thickness. 4. Left ventricular systolic function is normal with an ejection fraction of 60-65% by visual estimation. 5. The left ventricular diastolic function is indeterminate as this was not assessed. 6. Left atrial chamber dimension is moderately enlarged. 7. There is severe aortic valve sclerosis. 8. There is trace aortic valve regurgitation. 9. There is severe aortic valve stenosis with valve area of 0.9 cm2 by planimetry and significant transvalvular turbulent flow. 10. There is mild mitral valve regurgitation. Left Ventricle Left ventricular systolic function is normal with an ejection fraction of 60-65% by visual estimation. The left ventricular diastolic function is indeterminate as this was not assessed. Left ventricular chamber dimension is normal. There is moderate concentric increased left ventricular wall thickness. Transesophageal echocardiogram. Right Ventricle Right ventricular chamber dimension is normal. Right ventricular systolic function is normal. Left Atria Left atrial chamber dimension is moderately enlarged. Right Atria Right atrial chamber dimension is normal. Aortic Valve There is severe aortic valve stenosis with valve area of 0.9 cm2 by planimetry and significant transvalvular turbulent flow. The aortic valve is trileaflet. There is severe aortic valve sclerosis. There is trace aortic valve regurgitation. Pulmonic Valve There is no pulmonic regurgitation. Mitral Valve There is no mitral valve stenosis. There is mild mitral valve regurgitation. Tricuspid Valve There is no tricuspid valve regurgitation. Pericardium/Pleural There is no pericardial effusion. Inferior Vena Cava Inferior vena cava is not well visualized. Aorta The aortic root size at the sinus of Valsalva is normal. Report Signatures
[2022-11-22 10:54] VITALS: BP 98/52; PULSE 71; RESP 15; O2SAT 95
[2022-11-22 11:00] VITALS: BP 106/62; PULSE 72; RESP 19; O2SAT 95
[2022-11-22 11:15] VITALS: BP 112/63; PULSE 72; RESP 16; O2SAT 97
[2022-11-22 11:30] VITALS: BP 117/65; PULSE 72; RESP 16; O2SAT 94
[2022-11-22 11:45] VITALS: BP 120/62; PULSE 71; RESP 14; O2SAT 95
== END 2022-11-22 12:27 | disposition home or self-care (01) ==
PROVIDERS: PCP Emergency Medicine; Visit Provider Internal Medicine Cardiovascular Disease
PROC: (CPT 93312; principal; 2022-11-22 10:00)
DX: I35.0 Nonrheumatic aortic (valve) stenosis (principal); I35.1 Nonrheumatic aortic (valve) insufficiency; I35.8 Other nonrheumatic aortic valve disorders; I34.0 Nonrheumatic mitral (valve) insufficiency; I51.7 Cardiomegaly; E78.2 Mixed hyperlipidemia; Z79.891 Long term (current) use of opiate analgesic; Z79.84 Long term (current) use of oral hypoglycemic drugs; Z79.82 Long term (current) use of aspirin; Z82.49 Family history of ischemic heart disease and other diseases of the circulatory system
CPT/HCPCS: 93312; 93320; 93325; J2250; J2704; J3010; J7030

== ENCOUNTER 2022-12-16 05:24 | Day surgery (SDC) | payer MEDICARE, BC, SELFPAY ==
[2022-12-16] VITALS (10 sets, daily range): BP systolic 115–146; BP diastolic 51–94; PULSE 68–83; RESP 14–18; TEMP 36.8–37.1; O2SAT 91–97; BMI 29.8
[2022-12-16] MEDS: SODIUM CHLORIDE 0.9% IV 500 ML 100 ML IV CONT (07:45)
[2022-12-16 08:11] LABS: Basophils Percent Auto 0.3 % (0.2-1.2); Eosinophils Absolute Auto 0.1 K/mm3 (0-0.3); Eosinophils Percent Auto 0.9 % (0-4.4); Hematocrit 33.1 % (42.0-52.0); Immature Granulocyte Absolute 0.04 K/mm3 (0.00-0.031); Immature Granulocyte Percent A 0.5 % (0-0.5); Lymphocytes Absolute Auto 1.29 K/mm3 (0.9-3.2); Lymphocytes Percent Auto 16.4 % (18.3-44.2); Mean Corpuscular HGB Conc 30.2 g/dl (32-36); Mean Corpuscular Hemoglobin 24.2 pg (26-34); Mean Corpuscular Volume 80.1 fl (80-100); Mean Platelet Volume 11.1 fl (7.4-10.4); Monocytes Absolute Auto 0.6 K/mm3 (0.1-0.6); Monocytes Percent Auto 8.1 % (2.6-8.5); Neutrophils Absolute Auto 5.8 K/mm3 (1.3-6.7); Neutrophils Percent Auto 73.8 % (45.5-73.1); Platelet Count Result 200 k/mm3 (150-375); Red Blood Count 4.13 M/mm3 (4.6-6.20); Red Cell Distribution Width 15.3 % (11.5-14.5); White Blood Count 7.9 K/mm3 (4.5-10.0)
[2022-12-16 08:25] LABS: Prothrombin Time 13.6 Seconds (11.1-14.7)
[2022-12-16 08:26] LABS: Anion Gap 9 mmol/L (8-16); Blood Urea Nitrogen 15 mg/dL (9-20); Carbon Dioxide 26 mmol/L (22-30); Chloride 103 mmol/L (98-107); Estimated CRCL calculation 79 ml/min; Estimated Glomerular Filt Rate > 60; Glucose 197 mg/dL (65-110); Potassium 4.1 mmol/L (3.4-5.0); Sodium 138 mmol/L (137-145)
--- NOTE | 2022-12-16 09:14 | WPDMODSED ---
Moderate Sedation Note-Pt Data Patient Data Diagnosis: Aortic stenosis Present Complaint: no complaints this morning Procedure to be performed/Plan: coronary angiography Allergies Allergy/AdvReac Type Severity Reaction Status Date / Time No Known Allergies Allergy Verified 12/16/22 07:37 Home Medications Medication Instructions Recorded Confirmed Type acetaminophen 500 mg tablet 1,000 mg PO Q4H PRN Pain 01/18/19 12/15/22 History (Tylenol Extra Strength) cholecalciferol (vitamin D3) 25 1,000 unit PO DAILY 01/18/19 12/15/22 History mcg (1,000 unit) capsule ystjztwrbot-mfevzjhcr-kyd C-Mn 500 1 cap PO BID 01/18/19 12/15/22 History mg-400 mg capsule (Glucosamine Chondroitin Maximum Strength) multivitamin (Daily Multi-Vitamin 1 tablet PO DAILY 01/18/19 12/15/22 History tablet) aspirin 81 mg tablet,delayed 81 mg PO DAILY 01/23/19 12/15/22 History release (Aspir-) calcium and magnesium carbonates 1 tablet PO TID 05/01/20 12/15/22 History 520 mg-400 mg tablet tramadol 50 mg tablet 50 mg PO TID 05/01/20 12/15/22 History mecobalamin-levomefolate 1 tablet PO BID 04/21/21 12/15/22 History calcium-pyridoxal phos 3 mg-35 mg-2 mg tablet ibuprofen 200 mg capsule 400 mg PO Q6H PRN Pain 04/29/22 12/15/22 History blood sugar diagnostic (Accu-Chek See Rx Instructions .Route 06/22/22 12/05/22 Rx Ana Lilia Plus test strips) .COMPLEX #200 strips sitagliptin phosphate 50 mg tablet 50 mg PO DAILY #90 tabs 10/05/22 12/15/22 Rx (Januvia) hydralazine 50 mg tablet 75 mg PO TID #135 tabs 10/12/22 12/15/22 Rx amlodipine 10 mg tablet 10 mg PO DAILY 11/22/22 12/15/22 History atorvastatin 20 mg tablet 20 mg PO 3XW 12/16/22 12/16/22 History clonidine HCl 0.1 mg tablet 0.1 mg PO TID 12/16/22 12/16/22 History fenofibrate nanocrystallized 48 mg 48 mg PO DAILY 12/16/22 12/16/22 History tablet glipizide 5 mg tablet 5 mg PO BID 12/16/22 12/16/22 History losartan 100 mg tablet 100 mg PO DAILY 12/16/22 12/16/22 History metformin 1,000 mg tablet 1,000 mg PO BID 12/16/22 12/16/22 History metoprolol succinate 100 mg 100 mg PO DAILY 12/16/22 12/16/22 History tablet,extended release 24 hr metoprolol succinate 50 mg 50 mg PO DAILY 12/16/22 12/16/22 History tablet,extended release 24 hr omeprazole 20 mg capsule,delayed 20 mg PO DAILY 12/16/22 12/16/22 History release tamsulosin 0.4 mg capsule 0.4 mg PO DAILY 12/16/22 12/16/22 History Current Medications: Active Medications Sodium Chloride (Normal Saline Iv) 500 mls @ 100 mls/hr IV CONT .Q5H NIGEL Sedation/Anesthesia: No previous sedation/anesthesia problems (including family history). [facility] Past Medical History Medical History Congestive heart failure (CHF) EF 60-65 per cent Hypertension Surgical History Surgical History H/O hand surgery H/O right inguinal hernia repair 05/04/22 Family History Family History Grandparent Family history of heart disease in male family member before age 55 Mother Family history of heart disease in male family member before age 55 Diabetes mellitus, Onset Age: 81 Hypertension, Onset Age: 81 Family history of cardiovascular disease, Onset Age: 81 Father Family history of cardiovascular disease, Onset Age: 71 Social History Social History Smoking status: Never smoker Second hand tobacco smoke exposure: Yes Alcohol intake: former Drinks per week: 1 Alcohol use details: 1 shot of whiskey per day Substance use: never Substance use type: does not use Lack of Transportation: No Lack of Food: Never True Current Housing: I Have Housing Concerned About Future Housing: No Difficulty Paying Gas/Electric Bills: No Difficulty Paying for Meds: No Cur
--- NOTE | 2022-12-16 09:32 | WPDCARDPROC ---
Cardiac Cath Procedure Note Date of procedure:: 12/16/22 Performing physician:: Marco Antonio Black MD Indication:: preop evaluation for aortic valve replacement Brief clinical history:: this is a 77-year-old man who has developed critical aortic valve stenosis. 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 Procedure Procedure performed:: Coronary angiography Angio-Seal to right femoral artery Sedation/Medication given:: fentanyl 50 mg Versed 2 mg case start time 9:17 a.m. case end time 9:30 a.m. sedation provided by Arlette Nichols RN, trained observer Access site:: right femoral artery Estimated blood loss:: 25 cc Procedure note:: patient was brought to the cardiac catheterization lab in the postabsorptive state where the right femoral triangle was prepared and draped in the normal fashion. Anesthesia was provided with 1% lidocaine infiltrated locally. Using the modified Seldinger technique 15 cc of lidocaine was infiltrated for local anesthesia. Following this using the modified Seldinger technique the right common femoral artery was punctured and a 5 [place] vascular sheath was placed. After this I used a 5 [place] FL4 catheter to engage inject the left coronary artery in multiple projections following this a 5 [place] JR4 catheter was used to engage inject the right coronary artery. The cineangiograms were then reviewed and the case was terminated. An angiogram was then performed of the femoral artery through the sheath and then a 6 [place] Angio-Seal device was used to provide hemostasis. The procedure was well tolerated and uncomplicated. 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 Findings:: Hemodynamics: Central aortic pressure is 146/60. The left ventricle was not entered during this procedure the left main coronary artery is nicely patent the left anterior descending is a medium caliber artery extending down to the apex the LAD and its branches are free of significant atherosclerosis. The circumflex is a moderate caliber artery giving rise to the marginal branches. The circumflex system is free of significant atherosclerosis. The right coronary artery is larger in caliber and dominant to the posterior circulation. The right coronary artery is free of significant atherosclerosis. Conclusion:: 1. Right coronary dominant circulation with no significant coronary artery disease 2. Angio-Seal deployed at right femoral artery puncture site Marco Antonio Black MD [facility]
== END 2022-12-16 13:30 | disposition home or self-care (01) ==
PROVIDERS: PCP Emergency Medicine; Visit Provider Specialist
PROC: (CPT 93454; principal; 2022-12-16 09:00)
DX: Z01.810 Encounter for preprocedural cardiovascular examination (principal); I35.0 Nonrheumatic aortic (valve) stenosis; I11.0 Hypertensive heart disease with heart failure; I50.9 Heart failure, unspecified; Z79.82 Long term (current) use of aspirin; Z79.84 Long term (current) use of oral hypoglycemic drugs; Z82.49 Family history of ischemic heart disease and other diseases of the circulatory system
CPT/HCPCS: 36415; 80048; 85025; 85610; 93454; C1760; C1887; C1894; G0269; J1644; J2250; J3010; J7040

== ENCOUNTER 2023-07-06 15:00 | Outpatient (RCR) | payer MEDICARE, BC, SELFPAY | END 2023-07-06 15:19 | disposition home or self-care (01) | LOC: ANHCPREHAB 15:00 | PROVIDERS: PCP Emergency Medicine; Visit Provider Internal Medicine Cardiovascular Disease | DX: Z95.2 Presence of prosthetic heart valve (principal) | CPT/HCPCS: 93798 ==